=== PATIENT | female | born 1990 | race Caucasian/White ===

== ENCOUNTER 2017-08-29 16:08 | Emergency (ER) | payer MEDICARE, MEDICAID ==
[2017-08-29] MEDS ORDERED: Albuterol/Ipratropium NEB.SOL* Albuterol 2.5 MG/Ipratropium 0.5 MG 3 ML INH ONE (17:53)
--- NOTE | 2017-08-29 18:13 | RAD ---
INDICATION: Cough COMPARISON: None TECHNIQUE: PA and lateral dual-energy views were obtained. FINDINGS: Bones/Soft Tissues: There are no acute bony findings. Cardiomediastinal: The cardiomediastinal silhouette is normal. Lungs: There are no infiltrates. Pleura: There are no pleural effusions. Other: None IMPRESSION: NEGATIVE EXAMINATION.
[2017-08-29 18:26] VITALS: BP 131/96
--- NOTE | 2017-08-29 18:52 | ED ---
HPI Cardiac - HPI Summary HPI Summary: Pt here w/ URI and cough x 5 days. Started as nasal congestion and cough - productive from both areas at times and sometimes yellow, brown. Has frontal facial headache/sinus pressure, intermittent ear pressure, ST and cough worse w / deep breath. She has asthma - has not used albuterol HFA nor nebulizer at home yet. Has tried advil which helps while in her system but symptoms return when it wears off. Denies fever, chills, N/V/D, ab pain, diarrhea. Mom w/ URI sx last week. - History of Current Complaint Chief Complaint: EDFluSymptoms Stated Complaint: COUGH Time Seen by Provider: 08/29/17 16:49 Hx Obtained From: Patient, Family/Heel Sprayer - mom Pain Intensity: 10 - Allergy/Home Medications Allergies/Adverse Reactions: Allergies Allergy/AdvReac Type Severity Reaction Status Date / Time Two antibiotics, unknown name Allergy See Comment Uncoded 10/24/16 18:12 PMH/Surg Hx/FS Hx/Imm Hx Previously Healthy: Yes Endocrine/Hematology History: Reports: Hx Thyroid Disease Respiratory History: Reports: Hx Asthma Neurological History: Reports: Hx Developmental Delay - disabled d/t this condition - Surgical History Surgery Procedure, Year, and Place: T&A. Appy Infectious Disease History: No Infectious Disease History: Denies: Hx Clostridium Difficile, Hx Hepatitis, Hx Human Immunodeficiency Virus (HIV), Hx of Known/Suspected MRSA, Hx Shingles, Hx Tuberculosis, Hx Known/ Suspected VRE, Hx Known/Suspected VRSA, History Other Infectious Disease, Traveled Outside the [place] in Last 30 Days - Family History Known Family History: Positive: Cardiac Disease, Hypertension, Diabetes - Social History Occupation: Disabled - developmental disability Lives: With Family Alcohol Use: Occasionally - holidays, special occasions Hx Substance Use: No Substance Use Type: Reports: None Hx Tobacco Use: No Smoking Status (MU): Never Smoked Tobacco Have You Smoked in the Last Year: No Review of Systems Constitutional: Negative Negative: Fever, Chills, Fatigue Eyes: Negative Negative: Photophobia, Blurred Vision, Diplopia, Drainage, Erythema Positive: Sore Throat, Ear Ache, Nasal Discharge Cardiovascular: Negative Negative: Palpitations, Chest Pain Positive: Cough. Negative: Shortness Of Breath Gastrointestinal: Negative Negative: Abdominal Pain, Vomiting, Diarrhea, Nausea Positive: no symptoms reported Musculoskeletal: Negative Negative: Arthralgia, Myalgia Skin: Negative Negative: Rash Positive: Headache - sinus pressure. Negative: Weakness, Paresthesia, Numbness , Syncope, Slurred Speech Psychological: Normal All Other Systems Reviewed And Are Negative: Yes Physical Exam Triage Information Reviewed: Yes Vital Signs On Initial Exam: Initial Vitals Temp Pulse Resp BP Pulse Ox 98.1 F 89 20 140/87 98 08/29/17 16:57 08/29/17 16:57 08/29/17 16:57 08/29/17 16:57 08/29/17 16:57 Vital Signs Reviewed: Yes Appearance: Positive: No Pain Distress, Ill-Appearing - apepars mildly fatigued - nasal congestion w/ scleral injection Rt > Lt - no d/c, Obese Skin: Positive: Warm, Dry - no rash Head/Face: Positive: Other - frontal/maxillary sinuses TTP Eyes: Positive: EOMI, NEFTALI, Conjunctiva Clear. Negative: Discharge ENT: Positive: Hearing grossly normal, Pharyngeal erythema - mild cobblestoning , Nasal congestion, Nasal drainage - clear, TMs normal. Negative: Tonsillar swelling, Tonsillar exudate, Trismus, Muffled voice Neck: Positive: Supple, Nontender, No Lymphadenopathy Respiratory/Lung Sounds: Positive: Clear to Auscultation, Breath Sounds Present. Negative: Rales, Rhonchi, Stridor, Wheezes Cardiovascular: Positive: Normal, RRR, S1, S2. Negative: Murmur, Rub Abdomen Description: Positive: Nontender, Soft Bowel Sounds: Positive: Present Musculoskeletal: Positive: Normal, Strength/ROM Intact Neurological: Positive: Normal, Sensory/Motor Intact, Alert, Oriented to Person Place, Time, CN Intact II-III Psychiatric: Positive: Normal - Justin Coma Scale Coma Scale Total: 15 Diagnostics - Vital Signs Vital Signs Temp Pulse Resp BP Pulse Ox 08/29/17 18:09 90 16 99 08/29/17 18:02 89 98 08/29/17 18:00 89 131/96 98 08/29/17 17:30 94 111/71 99 08/29/17 17:00 144/88 08/29/17 16:58 140/87 08/29/17 16:57 98.1 F 89 20 140/87 98 - Laboratory Lab Statement: Any lab studies that have been ordered have been reviewed, and results considered in the medical decision making process. Re-Evaluation - Re-Evaluation First Eval Change: Improved - s/p duoneb Disposition - Course Course Of Treatment: Pt here w/ URI sx + cough x 5 days. Asthma - has not used bronchodilator - would like to have a neb tx here today. Also discussed need for CXR vs not - she would like to proceed with it. Improved some s/p duoneb. Danger s/sx for when to return provided. Pt and mom agree w/ plan. - Diagnoses Provider Diagnoses: URI (upper respiratory infection), Cough, Asthma Discharge - Discharge Plan Condition: Stable Disposition: HOME Patient Education Materials: Upper Respiratory Infection (ED), Asthma (ED) Referrals: Mayco HARMON,Mehdi Little [Primary Care Provider] - Additional Instructions: You may try the following to reduce/alleviate symptoms until illness passes: Nasal wash (netti pot) & throat gargle 2 x day with 8 ounces of warm water + 1/ 4 teaspoon of salt Drink 60+ ounces of water daily Sleep 8+ hours per night Avoid Dairy and sugar Hot herbal/decaf tea with lemon & honey Chicken broth (preferably organic, free range chicken) Humidifier in house, but especially near bed at night Try a facial steam with or without eucalyptus essential oil OR Vicks vapor rub, cough drops, etc Consider taking Vitamin D3 5,000iu and Vitamin C 1,000mg every day during illness Use you albuterol for cough - a new one has been sent to your pharmacy. You may also use your nebulizer as needed. *If you have difficulty breathing, return to ED *If symptoms persist beyond 7-14 days, return to ED
== END 2017-08-29 19:13 | disposition home or self-care (01) ==
LOC: ED 16:08
DX: J06.9 Acute upper respiratory infection, unspecified (principal); J02.9 Acute pharyngitis, unspecified; R05 Cough; R51 Headache
CPT/HCPCS: 71020; 94640; 99282; A9270-GY

== ENCOUNTER 2018-01-27 18:42 | Emergency (ER) | payer MEDICARE, MEDICAID ==
[2018-01-27 21:06] VITALS: BP 153/108
--- NOTE | 2018-01-27 21:25 | ED ---
Respiratory - HPI Summary HPI Summary: 27 yr old female with the complaint of runny nose, cough, sore throat for about 12 days. No SOB. No CP. She has had some fever. She has had some fever. There are other ill exposures in the house. - History of Current Complaint Chief Complaint: UCRespiratory Stated Complaint: RESPIRATORY Time Seen by Provider: 01/27/18 21:14 Pain Intensity: 9 - Allergy/Home Medications Allergies/Adverse Reactions: Allergies Allergy/AdvReac Type Severity Reaction Status Date / Time Two antibiotics, unknown name Allergy See Comment Uncoded 10/24/16 18:12 PMH/Surg Hx/FS Hx/Imm Hx Endocrine/Hematology History: Reports: Hx Thyroid Disease - has not taken meds Respiratory History: Reports: Hx Asthma Neurological History: Reports: Hx Developmental Delay - disabled d/t this condition - Surgical History Surgery Procedure, Year, and Place: T&A. Appy Infectious Disease History: No Infectious Disease History: Denies: Hx Clostridium Difficile, Hx Hepatitis, Hx Human Immunodeficiency Virus (HIV), Hx of Known/Suspected MRSA, Hx Shingles, Hx Tuberculosis, Hx Known/ Suspected VRE, Hx Known/Suspected VRSA, History Other Infectious Disease, Traveled Outside the in Last 30 Days - Family History Known Family History: Positive: Cardiac Disease, Hypertension, Diabetes - Social History Lives: With Family Alcohol Use: Occasionally Hx Substance Use: No Substance Use Type: Reports: None Hx Tobacco Use: No Smoking Status (MU): Never Smoked Tobacco Have You Smoked in the Last Year: No Review of Systems Positive: Fever. Negative: Chills Positive: Sore Throat, Nasal Discharge Positive: Cough All Other Systems Reviewed And Are Negative: Yes Physical Exam Triage Information Reviewed: Yes Vital Signs On Initial Exam: Initial Vitals Temp Pulse Resp BP Pulse Ox 98.8 F 112 24 153/108 99 01/27/18 20:51 01/27/18 20:51 01/27/18 20:51 01/27/18 20:51 01/27/18 20:51 Vital Signs Reviewed: Yes Appearance: Positive: Obese Skin: Positive: Warm, Skin Color Reflects Adequate Perfusion Head/Face: Positive: Normal Head/Face Inspection Eyes: Positive: EOMI, NEFTALI ENT: Positive: Normal ENT inspection, Pharynx normal, Nasal congestion, TM red - mild red left. Negative: Muffled voice, Hoarse voice Neck: Positive: Supple, Nontender Respiratory/Lung Sounds: Positive: Clear to Auscultation, Breath Sounds Present Cardiovascular: Positive: RRR. Negative: Murmur Abdomen Description: Positive: Nontender Musculoskeletal: Positive: Strength/ROM Intact Neurological: Positive: Sensory/Motor Intact, Alert, Oriented to Person Place, Time, CN Intact II-III Psychiatric: Positive: Normal - Justin Coma Scale Best Eye Response: 4 - Spontaneous Best Motor Response: 6 - Obeys Commands Best Verbal Response: 5 - Oriented Coma Scale Total: 15 Diagnostics - Vital Signs Vital Signs Temp Pulse Resp BP Pulse Ox 01/27/18 20:51 98.8 F 112 24 153/108 99 - Laboratory Lab Statement: Any lab studies that have been ordered have been reviewed, and results considered in the medical decision making process. Disposition - Course Course Of Treatment: 27 yr old female with URI symptoms, and coughing. DC home good condition. She will follow up with PMD for BP recheck. - Diagnoses Provider Diagnoses: Upper respiratory infection, Hypertension Discharge - Sign-Out/Discharge Documenting (check all that apply): Discharge - Discharge Plan Condition: Good Disposition: HOME Patient Education Materials: Upper Respiratory Infection (ED), Hypertension (ED ) Referrals: Mayco HARMON,Mehdi Little [Primary Care Provider] - 2 Days - Billing Disposition and Condition Condition: GOOD Disposition: HOME
== END 2018-01-27 21:26 | disposition home or self-care (01) ==
LOC: UCCORT 18:42
DX: J06.9 Acute upper respiratory infection, unspecified (principal); I10 Essential (primary) hypertension; Z88.3 Allergy status to other anti-infective agents
CPT/HCPCS: 99211; G0463

== ENCOUNTER 2018-11-22 17:34 | Emergency (ER) | payer MEDICARE, MEDICAID ==
[2018-11-22 18:21] VITALS: BP 155/98
--- NOTE | 2018-11-22 20:07 | UC ---
UC General HPI - HPI Summary HPI Summary: pt c/o sinus congestion, ear pain, fever and cough x 2-3 days. hx asthma. - History of Current Complaint Chief Complaint: UCGeneralIllness Stated Complaint: EAR PAIN,CONGESTION Time Seen by Provider: 11/22/18 19:59 Hx Obtained From: Patient Hx Last Menstrual Period: last month Onset/Duration: Gradual Onset Timing: Constant Pain Intensity: 8 Associated Signs & Symptoms: Positive: SOB, Wheezing - Allergy/Home Medications Allergies/Adverse Reactions: Allergies Allergy/AdvReac Type Severity Reaction Status Date / Time Two antibiotics, unknown name Allergy See Comment Uncoded 11/22/18 18:21 PMH/Surg Hx/FS Hx/Imm Hx Respiratory History: Asthma - Surgical History Surgical History: Yes Surgery Procedure, Year, and Place: T&A. Appy - Family History Known Family History: Positive: Cardiac Disease, Hypertension, Diabetes - Social History Alcohol Use: Occasionally Substance Use Type: None Smoking Status (MU): Never Smoked Tobacco Have You Smoked in the Last Year: No Review of Systems All Other Systems Reviewed And Are Negative: Yes Constitutional: Positive: Negative Skin: Positive: Negative Eyes: Positive: Negative ENT: Positive: Ear Ache, Nasal Discharge, Sinus Congestion, Sinus Pain/ Tenderness Respiratory: Positive: Shortness Of Breath, Cough Cardiovascular: Positive: Negative Gastrointestinal: Positive: Negative Genitourinary: Positive: Negative Motor: Positive: Negative Neurovascular: Positive: Negative Musculoskeletal: Positive: Negative Neurological: Positive: Negative Psychological: Positive: Negative Physical Exam Triage Information Reviewed: Yes Appearance: Well-Appearing Vital Signs: Initial Vital Signs Temp 97.7 F 11/22/18 18:14 Pulse 87 11/22/18 18:14 Resp 18 11/22/18 18:14 BP 155/98 11/22/18 18:14 Pulse Ox 100 11/22/18 18:14 Vital Signs Reviewed: Yes Eyes: Positive: Conjunctiva Clear ENT: Positive: Pharynx normal, Nasal congestion, Nasal drainage - clear, TM red - x2 Neck: Positive: Supple, Nontender, No Lymphadenopathy Respiratory: Positive: No respiratory distress, Decreased breath sounds, Other: - congested cough Cardiovascular: Positive: RRR, No Murmur Abdomen Description: Positive: Nontender, No Organomegaly, Soft Bowel Sounds: Positive: Present Musculoskeletal: Positive: ROM Intact Neurological: Positive: Alert Psychological: Positive: Age Appropriate Behavior Skin Exam: Normal Course/Dx - Diagnoses Provider Diagnosis: URI (upper respiratory infection), Otitis media, Asthma Discharge - Sign-Out/Discharge Documenting (check all that apply): Patient Departure All imaging exams completed and their final reports reviewed: No Studies - Discharge Plan Condition: Stable Disposition: HOME Prescriptions: Albuterol HFA INHALER* [Ventolin HFA Inhaler*] 2 puff INH Q6H #1 mdi Amoxicillin/Clavulanate TAB* [Augmentin TAB 875*] 875 mg PO BID 10 Days #20 tab predniSONE [Prednisone 20 MG TAB] 40 mg PO DAILY 5 Days #10 tablet Patient Education Materials: Asthma (DC), Ear Infection (ED) Referrals: Mayco HARMON,Mehdi Little [Primary Care Provider] - 5 Days - Billing Disposition and Condition Condition: STABLE Disposition: Home - Attestation Statements Provider Attestation: I was available for consult. This patient was seen by the LEON. The patient was not presented to, seen by, or examined by me. -Alejandro
[2018-11-22] MEDS ORDERED: Amoxicillin/Clavulanate TAB* 875 MG PO ONE (20:16)
[2018-11-22] MEDS ORDERED: predniSONE TAB* 20 MG PO ONE (20:16)
[2018-11-22] MEDS ORDERED: Albuterol HFA INHALER* 8 gm MDI INH ONE (20:16)
== END 2018-11-22 20:27 | disposition home or self-care (01) ==
LOC: UCCORT 17:34
DX: J06.9 Acute upper respiratory infection, unspecified (principal); J45.909 Unspecified asthma, uncomplicated; H66.90 Otitis media, unspecified, unspecified ear; Z88.1 Allergy status to other antibiotic agents
CPT/HCPCS: 99213; A9270-GY; G0463; J7512

== ENCOUNTER 2019-02-23 19:53 | Emergency (ER) | payer MEDICARE, MEDICAID ==
[2019-02-23 20:11] VITALS: BP 126/87
--- NOTE | 2019-02-23 20:43 | UC ---
Ear Complaint HPI - HPI Summary HPI Summary: Has had an intermittent cough for 1 mo. and was tx'd for an infectious source. Continues to cough that it makes her head hurt and ears hurt. Her main concern is her ears. R>L assoc w/ occasional muffled hearing. does have allergies but does not think her claritin is working. does have asthma but has not used her albuterol in a month.. denies 2nd hand smoke exposure. - History of Current Complaint Chief Complaint: UCGeneralIllness Stated Complaint: RIGHT EAR PAIN/COUGH Time Seen by Provider: 02/23/19 20:33 Hx Obtained From: Patient Hx Last Menstrual Period: 02/2019 Pain Intensity: 8 Pain Scale Used: 0-10 Numeric Aggravating Factors: Nothing Alleviating Factors: Nothing Related History: Seasonal Allergies - Allergies/Home Medications Allergies/Adverse Reactions: Allergies Allergy/AdvReac Type Severity Reaction Status Date / Time amoxicillin [From Augmentin] Allergy Swelling Verified 02/23/19 20:06 Of Face,Lips,& Throat ceftibuten [From Cedax] Allergy Unknown Verified 02/23/19 20:06 Reaction Details clavulanic acid Allergy Swelling Verified 02/23/19 20:06 [From Augmentin] Of Face,Lips,& Throat Home Medications: Home Medications Fluticasone NASAL SPRAY 50MCG* [Flonase NASAL SPRAY 50MCG*] 2 spray BOTH NARES DAILY 02/23/19 [History Confirmed 02/23/19] Levothyroxine TAB* [Synthroid TAB*] 75 mcg PO DAILY 02/23/19 [History Confirmed 02/23/19] Pantoprazole TAB * [Protonix TAB*] 40 mg PO DAILY 02/23/19 [History Confirmed ] hydrOXYzine HCL TAB* [Atarax 25 MG TAB*] 25 mg PO QID PRN 02/23/19 [History Confirmed 02/23/19] PMH/Surg Hx/FS Hx/Imm Hx Previously Healthy: Yes Respiratory History: Asthma - Surgical History Surgical History: Yes Surgery Procedure, Year, and Place: T&A. Appy - Family History Known Family History: Positive: Cardiac Disease, Hypertension, Diabetes - Social History Alcohol Use: Occasionally Substance Use Type: None Smoking Status (MU): Never Smoked Tobacco Have You Smoked in the Last Year: No Review of Systems All Other Systems Reviewed And Are Negative: Yes Constitutional: Negative: Fever, Chills ENT: Positive: Ear Ache. Negative: Sore Throat, Sinus Congestion Respiratory: Positive: Cough. Negative: Shortness Of Breath Cardiovascular: Positive: Negative Neurological: Negative: Headache Physical Exam Triage Information Reviewed: Yes Appearance: Well-Appearing Vital Signs: Initial Vital Signs Temp 97.8 F 02/23/19 20:06 Pulse 100 02/23/19 20:06 Resp 21 02/23/19 20:06 BP 126/87 02/23/19 20:06 Pulse Ox 99 02/23/19 20:06 Vital Signs Reviewed: Yes Eyes: Positive: Conjunctiva Clear ENT: Positive: Nasal congestion, TMs normal Neck: Positive: Supple Respiratory: Positive: No respiratory distress, Rhonchi - occasional and coughs during exam upon deep inhalation.. Negative: Crackles, Stridor, Wheezing Cardiovascular Exam: Normal Skin: Negative: Rashes Ear Complaint Course/Dx - Course Course Of Treatment: Mild asthma exacerbation assoc. w/ uncontrolled allergies. Not thought to be infectious. Pulse Ox good, lungs clear but does cough during visit. Symptoms improved after neb tx. Advised to change allergy med to zyrtec and to try to remember to use her inhalers as they are prescribed. - Differential Dx/Diagnosis Provider Diagnosis: Asthma exacerbation Discharge - Sign-Out/Discharge Documenting (check all that apply): Patient Departure All imaging exams completed and their final reports reviewed: No Studies - Discharge Plan Condition: Good Disposition: HOME Prescriptions: Cetirizine* [ZyrTEC 10 MG TAB*] 10 mg PO DAILY #30 tab Patient Education Materials: Antihistamine (By mouth) Referrals: Mayco HARMON,Mehdi Little [Primary Care Provider] - Additional Instructions: Please follow up with your primary care to make sure your asthma is in control. - Billing Disposition and Condition Condition: GOOD Disposition: Home
[2019-02-23] MEDS ORDERED: Albuterol 2.5 MG/3 ML NEB.SOL* (0.083%) INH ONE (20:44)
== END 2019-02-23 21:20 | disposition home or self-care (01) ==
LOC: UCCORT 19:53
DX: J45.901 Unspecified asthma with (acute) exacerbation (principal); J30.2 Other seasonal allergic rhinitis; Z88.0 Allergy status to penicillin; Z88.8 Allergy status to other drugs, medicaments and biological substances
CPT/HCPCS: 99212; G0463

== ENCOUNTER 2019-09-06 18:17 | Emergency (ER) | payer MEDICARE, MEDICAID ==
[2019-09-06 19:53] VITALS: BP 144/79
[2019-09-06] MEDS ORDERED: DOXYcycline CAP(*) 100 MG PO ONE (20:15)
--- NOTE | 2019-09-06 20:19 | UC ---
Throat Pain/Nasal Curtis HPI - HPI Summary HPI Summary: 28-year-old woman comes in with a chief complaint of upper respiratory tract infection symptoms for about 5 days. Got runny nose yellow rhinorrhea. No fevers measured. She does have asthma and has needed to start using her albuterol inhaler again. She feels equal amount of congestion in her sinuses and her chest. - History of Current Complaint Chief Complaint: UCRespiratory Stated Complaint: SINUS/COUGH Time Seen by Provider: 09/06/19 19:44 Hx Last Menstrual Period: 09/01/19 Pain Intensity: 0 - Allergies/Home Medications Allergies/Adverse Reactions: Allergies Allergy/AdvReac Type Severity Reaction Status Date / Time amoxicillin [From Augmentin] Allergy Swelling Verified 09/06/19 19:48 Of Face,Lips,& Throat ceftibuten [From Cedax] Allergy Rash Verified 09/06/19 19:48 clavulanic acid Allergy Swelling Verified 09/06/19 19:48 [From Augmentin] Of Face,Lips,& Throat Home Medications: Home Medications Albuterol HFA INHALER* [Ventolin HFA Inhaler*] 2 puff INH Q4H PRN 09/06/19 [ History Confirmed 09/06/19] PMH/Surg Hx/FS Hx/Imm Hx Previously Healthy: Yes Endocrine History: Hypothyroidism Respiratory History: Asthma GI/ History: Gastroesophageal Reflux - Surgical History Surgical History: Yes Surgery Procedure, Year, and Place: T&A. Appy - Family History Known Family History: Positive: Cardiac Disease, Hypertension, Diabetes - Social History Alcohol Use: Occasionally Substance Use Type: None Smoking Status (MU): Never Smoked Tobacco Have You Smoked in the Last Year: No Review of Systems All Other Systems Reviewed And Are Negative: Yes Constitutional: Positive: Other - SEE HPI Skin: Positive: Negative Eyes: Positive: Negative ENT: Positive: Ear Ache, Nasal Discharge, Sinus Congestion Respiratory: Positive: Cough, Other - SEE HPI Cardiovascular: Positive: Negative Gastrointestinal: Positive: Negative Motor: Positive: Negative Neurovascular: Positive: Negative Musculoskeletal: Positive: Negative Neurological: Positive: Negative Psychological: Positive: Negative Is Patient Immunocompromised?: No Physical Exam Triage Information Reviewed: Yes Appearance: No Pain Distress, Well-Nourished, Ill-Appearing - MILD Vital Signs: Initial Vital Signs Temp 98.6 F 09/06/19 19:46 Pulse 120 09/06/19 19:46 Resp 20 09/06/19 19:46 BP 144/79 09/06/19 19:46 Pulse Ox 99 09/06/19 19:46 Vital Signs Reviewed: Yes Eye Exam: Normal Eyes: Positive: Conjunctiva Clear ENT: Positive: Pharyngeal erythema, Nasal congestion, Nasal drainage, TMs normal Neck: Positive: Supple Respiratory: Positive: Lungs clear, Normal breath sounds, No respiratory distress Cardiovascular: Positive: RRR Musculoskeletal: Positive: Strength Intact, ROM Intact Neurological: Positive: Alert, Muscle Tone Normal Psychological: Positive: Age Appropriate Behavior Throat Pain/Nasal Course/Dx - Course Course Of Treatment: DISCUSSED VIRAL VERSES BACTERIAL INFECTIONS AND THE ROLE OF ANTIBIOTICS. THE PATIENT PREFERS TO BE ON ANTIBIOTICS AT THIS TIME. - Differential Dx/Diagnosis Provider Diagnosis: Upper respiratory infection Discharge ED - Sign-Out/Discharge Documenting (check all that apply): Patient Departure All imaging exams completed and their final reports reviewed: No Studies - Discharge Plan Condition: Stable Disposition: HOME Prescriptions: DOXYcycline CAP(*) [DOXYcycline 100MG CAP(*)] 100 mg PO BID #19 cap Patient Education Materials: Upper Respiratory Infection (ED) Referrals: Mayco HARMON,Mehdi Little [Primary Care Provider] - Additional Instructions: FOLLOW UP WITH YOUR DOCTOR IF NOT COMPLETELY IMPROVED. GET REEVALUATED SOONER IF NOT IMPROVING OR WORSE OR ANY QUESTIONS OR CONCERNS. - Billing Disposition and Condition Condition: STABLE Disposition: Home
== END 2019-09-06 20:28 | disposition home or self-care (01) ==
LOC: UCCORT 18:17
DX: J06.9 Acute upper respiratory infection, unspecified (principal); J45.909 Unspecified asthma, uncomplicated; H92.09 Otalgia, unspecified ear; Z88.0 Allergy status to penicillin; Z88.8 Allergy status to other drugs, medicaments and biological substances; Z79.899 Other long term (current) drug therapy
CPT/HCPCS: 99212; A9270-GY; G0463

== ENCOUNTER 2021-01-12 09:05 | Inpatient (IN) ==
[2021-01-12] MEDS ORDERED: Famotidine IV 10 MG/ML 2 ml VIAL (20 mg) IV SLOW PU ONE (09:38)
[2021-01-12] MEDS ORDERED: NS 0.9% 1000 ml BAG 1,000 ML IV ONE (09:38)
[2021-01-12] MEDS ORDERED: Ondansetron 4 mg VIAL 2 MG/ML 2 ml VIAL IV ONE (09:39)
[2021-01-12] MEDS ORDERED: Morphine 4 MG/ML VIAL (1 ml) IV ONE ×3 (09:39→13:52)
[2021-01-12 09:46] LABS: ABS Eosinophils 0.1 10^3/ul (0-0.6); ABS Lymphocytes 1.5 10^3/ul (1.0-4.8); ABS Monocytes 0.4 10^3/ul (0-0.8); ABS Neutrophils 9.9 10^3/ul (1.5-7.7); Eosinophil % 0.9 %; Hematocrit 45 % (35-47); Hemoglobin 14.8 g/dL (12.0-16.0); Lymphocyte % 12.6 %; Mean Corpuscular HGB Conc 33 g/dL (31-36); Mean Corpuscular Hemoglobin 28 pg (27-31); Mean Corpuscular Volume 84 fL (80-97); Mean Platelet Volume 8.5 fL (7.4-10.4); Platelet Count 280 10^3/uL (150-450); Red Blood Count 5.33 10^6 /uL (3.70-4.87); Red Cell Distribution Width 13 % (10-15)
[2021-01-12 10:03] LABS: ALT 20 U/L (7-52); AST 20 U/L (13-39); Albumin 4.1 g/dL (3.2-5.2); Albumin/Globulin Ratio 1.1 (1-3); Alkaline Phosphatase 56 U/L (34-104); Anion Gap 7 mmol/L (2-11); BUN/Creatinine Ratio 19.5 (8-20); Blood Urea Nitrogen 16 mg/dL (6-24); CO2 Carbon Dioxide 24 mmol/L (22-32); Calcium 9.3 mg/dL (8.6-10.3); Chloride 105 mmol/L (101-111); EGFR African American 98.4 (>60); EGFR Non-African American 81.3 (>60); Globulin 3.7 g/dL (2-4); Glucose 118 mg/dL (70-100); Lipase 16 U/L (11.0-82.0); Sodium 136 mmol/L (135-145); Total Protein 7.8 g/dL (6.4-8.9)
[2021-01-12 10:10] LABS: HCG Pregnancy < 0.60 mIU/mL
[2021-01-12] MEDS ORDERED: Al Hydrox/Mg Hydrox/Simet LIQ 30 ML UDC PO ONE (10:55)
[2021-01-12] MEDS ORDERED: oxyCODONE/Acetamin 5/325 mg TAB PO ONE (12:04)
[2021-01-12] MEDS ORDERED: Ondansetron 4 mg VIAL 2 MG/ML 2 ml VIAL IV PRN (15:58)
[2021-01-12] MEDS ORDERED: Albuterol HFA INHALER 8 gm MDI INH PRN (16:03)
[2021-01-12 16:26] LABS: Urine Appearance Cloudy; Urine Bilirubin Negative (Negative); Urine Blood 1+ (Negative); Urine Color Yellow; Urine Glucose Negative (Negative); Urine Ketones Negative (Negative); Urine Nitrite Negative (Negative); Urine Protein Negative (Negative); Urine Specific Gravity 1.021 (1.010-1.030); Urine Urobilinogen Negative (Negative)
[2021-01-12 16:41] LABS: Urine Bacteria Absent (Absent); Urine Red Blood Cell Trace(0-2/hpf) (Absent); Urine Squamous Epithelial Cell Present (Absent); Urine White Blood Cell Trace(0-5/hpf) (Absent)
[2021-01-12] MEDS: Morphine 2 MG/ML SYRINGE IV PRN ×3 (17:35→22:35)
[2021-01-12] MEDS: Lactated Ringers 1000 ml BAG 1,000 ML IV SCH (17:43)
[2021-01-12] MEDS: metroNIDAZOLE IV 500 MG/100ML 500 MG/100 ML BAG IVPB SCH (18:24)
[2021-01-12] MEDS: Levofloxacin 500 MG IVPREMIX 500 MG/100 ML BAG IVPB SCH (20:03)
[2021-01-13] MEDS: metroNIDAZOLE IV 500 MG/100ML 500 MG/100 ML BAG IVPB SCH ×3 (01:45→18:24)
[2021-01-13] MEDS: Morphine 2 MG/ML SYRINGE IV PRN ×5 (02:19→21:08)
[2021-01-13] MEDS: Lactated Ringers 1000 ml BAG 1,000 ML IV SCH ×2 (05:24→14:39)
[2021-01-13] MEDS: Levothyroxine 100 MCG/5 ML VIAL IV SCH (05:24)
[2021-01-13 06:07] LABS: ABS Basophils 0.1 10^3/ul (0-0.2); ABS Eosinophils 0.1 10^3/ul (0-0.6); ABS Lymphocytes 2.1 10^3/ul (1.0-4.8); ABS Monocytes 0.7 10^3/ul (0-0.8); ABS Neutrophils 9.1 10^3/ul (1.5-7.7); Hematocrit 39 % (35-47); Hemoglobin 12.8 g/dL (12.0-16.0); Lymphocyte % 17.7 %; Mean Corpuscular HGB Conc 33 g/dL (31-36); Mean Corpuscular Hemoglobin 28 pg (27-31); Mean Corpuscular Volume 85 fL (80-97); Mean Platelet Volume 8.6 fL (7.4-10.4); Platelet Count 247 10^3/uL (150-450); Red Blood Count 4.61 10^6 /uL (3.70-4.87); Red Cell Distribution Width 14 % (10-15); White Blood Count 12.1 10^3/uL (3.5-10.8)
[2021-01-13 06:56] LABS: Albumin 3.4 g/dL (3.2-5.2); Calcium 8.8 mg/dL (8.6-10.3); Potassium 4.3 mmol/L (3.5-5.0); Total Bilirubin 0.6 mg/dL (0.2-1.0)
[2021-01-13 07:02] LABS: Albumin/Globulin Ratio 1.1 (1-3); BUN/Creatinine Ratio 16.2 (8-20); EGFR African American 122.1 (>60); EGFR Non-African American 100.9 (>60); Total Protein 6.4 g/dL (6.4-8.9)
[2021-01-13] MEDS ORDERED: Pneumococcal Vac 23-Polyvalent IM ONE (09:00)
[2021-01-13] MEDS: Levofloxacin 500 MG IVPREMIX 500 MG/100 ML BAG IVPB SCH (20:54)
[2021-01-14] MEDS: Morphine 2 MG/ML SYRINGE IV PRN ×2 (00:05→18:35)
[2021-01-14] MEDS: Lactated Ringers 1000 ml BAG 1,000 ML IV SCH ×2 (01:49→21:31)
[2021-01-14] MEDS: metroNIDAZOLE IV 500 MG/100ML 500 MG/100 ML BAG IVPB SCH ×3 (01:50→18:28)
[2021-01-14] MEDS: Levothyroxine 100 MCG/5 ML VIAL IV SCH (05:15)
[2021-01-14] MEDS ORDERED: Bupivacaine 0.25% EPI 200,000 30 ML SDV ONE (11:10)
[2021-01-14] MEDS ORDERED: Propofol 10 MG/ML 20 ML BTL ONE (11:29)
[2021-01-14] MEDS ORDERED: Lidocaine 2% PF 5 ML VIAL ONE (11:30)
[2021-01-14] MEDS ORDERED: Rocuronium 50 mg VIAL 10 mg/ml 5 ml VIAL (50 mg) ONE ×2 (11:31→12:40)
[2021-01-14] MEDS ORDERED: Midazolam 2 mg/2 ml VIAL 1 mg/ml 2 ml VIAL (2 mg) ONE (11:32)
[2021-01-14] MEDS ORDERED: fentaNYL 100 mcg/2 ml 50 MCG/ML VIAL ONE (11:32)
[2021-01-14] MEDS ORDERED: Ketamine HCL 50 mg/ml 10 ml VIAL (500 MG) ONE (11:37)
[2021-01-14] MEDS ORDERED: Dexamethasone IV 4 MG/ML VIAL 1 ml VIAL ONE (12:07)
[2021-01-14] MEDS ORDERED: Ondansetron 4 mg VIAL 2 MG/ML 2 ml VIAL ONE (12:08)
[2021-01-14] MEDS ORDERED: HYDROmorphone 1 MG/1 ML SYRINGE IV PRN (12:34)
[2021-01-14] MEDS ORDERED: Naloxone 0.4 mg VIAL 0.4 mg/ml 1 ml VIAL IV PRN (12:34)
[2021-01-14] MEDS ORDERED: HYDROmorphone 1 MG/1 ML SYRINGE ONE (14:55)
[2021-01-14] MEDS: Levofloxacin 500 MG IVPREMIX 500 MG/100 ML BAG IVPB SCH (21:28)
[2021-01-15] MEDS: metroNIDAZOLE IV 500 MG/100ML 500 MG/100 ML BAG IVPB SCH ×2 (02:12→09:30)
[2021-01-15] MEDS: Morphine 2 MG/ML SYRINGE IV PRN (03:34)
[2021-01-15] MEDS: Levothyroxine 100 MCG/5 ML VIAL IV SCH ×2 (07:42→07:55)
[2021-01-15 11:05] VITALS: BP 119/70
== END 2021-01-15 16:05 | disposition home or self-care (01) | DRG 418 ==
LOC: SSU 09:05 → ED 09:05 → OBSVTOIN 15:58
PROVIDERS: ADMIT Surgery; ATTEND Surgery